=== PATIENT | female | born 1965 | race Caucasian/White ===

== ENCOUNTER 2017-10-14 21:06 | Emergency (ER) | payer BC, MEDICAID ==
[~2017-10-14] VITALS: Ht 167.6 cm; Wt 105.2 kg
[~2017-10-14 21:06] MED LIST: BENADRYL 50MG C50 MG PO; COZAAR100 MG PO; ELIMITE 5%60 GM/TUB1 TP; HYDROCORTISONE30 G1 TP; METOPROLOL 25 M25 MG PO; PREDNISONE 5MG.5 MG PO
[2017-10-14] MEDS ORDERED: ASMANEX TW0.22 MG/A1 IH (21:27)
--- NOTE | 2017-10-14 21:30 | Emergency Room Report ---
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 Y Clinical Suspician of Infection? N Mental Status: 1 - Regular (Normal Baseline) Sepsis Risk:Low Sepsis Risk Have you (or family members/close friends) recently traveled outside the [place]? N If Yes, where/when: Have you had exposure to infectious disease within the past month? N TB? Other? 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 No Angina: No [place]: No Hypertension? Yes Hyperlipidemia? No CHF? No DVT? No PE? No COPD? No Asthma? Yes Anemia? No GERD? No Gastric ulcers? Yes GI Bleed? No Hernia? No Thyroid Problems? No Hypothyroidism? No CVA? No Seizures? No Diabetes? No Renal Insuffiency? No End Stage Renal Disease? No UTI? No Stones? No BPH? No GB Disease: No Nephritic Syndrome? No Asplenia? No Hepatitis? No Sickle Cell Disease? No Arthritis? No Migraines? No Cataracts? No Glaucoma? No MRSA? No HIV? No TB? No Anxiety? No Depression? No Cancer? No More? 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 Respiratory see HPI, cough, denies shortness of breath, denies wheezing Cardiovascular denies chest pain, denies syncope Gastrointestinal denies abdominal pain, denies diarrhea, denies vomiting Genitourinary denies: dysuria, frequency, hesitancy, hematuria. Musculoskeletal denies back pain, denies joint pain, denies joint swelling, denies neck pain Skin denies rash Psychiatric/Neurological denies headache, denies seizure Physical Exam Vital Signs Vital Signs Date Time Temp Pulse Resp B/P Pulse O2 O2 Flow FiO2 Ox Delivery Rate 10/14 2111 98.5 112 18 148/86 96 - WBC >12,000 or <4,000 or 10% bands? 2 or more SIRS Criteria Met? B/P:148/86 MAP:106 Creatinine >2.0? UA output<0.5ml/kg/hr for 2 hrs? Platelet count >100,000? Lactate >2.0mmol/1? INR >1.2 or PTT > than 60 sec? Evidence of Organ Dysfunction? Provider documented clinical suspician of infection? N Sepsis Criteria Count: 1 Sepsis Risk: Low Sepsis Risk General Appearance no apparent distress Eye Exam - bilateral eye PERRL, bilateral eye EOMI Ear, Nose, Throat normal ENT inspection, normal pharynx Neck supple Respiratory Status No: respiratory distress. Lung Sounds bilateral: lungs clear. 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 No Results/Orders Laboratory Tests 10/14/172119: Influenza Type A Ag NOT DETECTED, Influenza Type B Ag NOT DETECTED Orders Procedure Date/time Status INFLUENZA A&B ANTIGENS 10/14 2124 Complete Departure Departure Time of Disposition 2155 Disposition DC Home or Self Care(routine) Clinical Impression Primary Impression: Bronchitis Condition STABLE Referrals JD FRANCIS (Family) Patient Instructions DI for Cough -- Adult Additional Instructions use meds and see pcp for follow up Discharge Counseling Counseled pt/family regarding diagnosis, test results, medications/RX, follow up needs Prescriptions Current Visit Scripts BENZONATATE (Benzonatate) 100 MG PO TID #15 CAP Azithromycin (Zithromycin (Z-CHRISSIE) 250MG Tab) 250 MG PO DAILY #6 TAB TAKE TWO (2) TABLETS ON DAY 1, THEN ONE (1) TABLET DAY #2 THRU #5 ED Critical Care Critical Care No at 2200
--- NOTE | 2017-10-14 21:30 | Emergency Room Report ---
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 Y Clinical Suspician of Infection? N Mental Status: 1 - Regular (Normal Baseline) Sepsis Risk:Low Sepsis Risk Have you (or family members/close friends) recently traveled outside the [place]? N If Yes, where/when: Have you had exposure to infectious disease within the past month? N TB? Other? Specify: Source patient, RN notes reviewed, family, old records Exam Limitations no limitations Comment over the last 3 days has brand mgr cough but has fever and achey Cardiac Chest Pain Chest pain indicative of cardiac No Timing/Duration this evening Severity moderate ALLERGIES Coded Allergies: Latex, Natural Rubber (10/14/17) soap (07/08/16) Uncoded Allergies: DETERGENT (07/08/16) Home Medications Reported Medications Losartan Potassium (Cozaar) 100 MG PO DAILY Metoprolol Tartrate (Metoprolol 25MG) 12.5 MG PO BID Mometasone Furoate (Asmanex) 1 PUFF IH BID History Medical History General CAD? No Angina: No [place]: No Hypertension? Yes Hyperlipidemia? No CHF? No DVT? No PE? No COPD? No Asthma? Yes Anemia? No GERD? No Gastric ulcers? Yes GI Bleed? No Hernia? No Thyroid Problems? No Hypothyroidism? No CVA? No Seizures? No Diabetes? No Renal Insuffiency? No End Stage Renal Disease? No UTI? No Stones? No BPH? No GB Disease: No Nephritic Syndrome? No Asplenia? No Hepatitis? No Sickle Cell Disease? No Arthritis? No Migraines? No Cataracts? No Glaucoma? No MRSA? No HIV? No TB? No Anxiety? No Depression? No Cancer? No More? 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 Respiratory see HPI, cough, denies shortness of breath, denies wheezing Cardiovascular denies chest pain, denies syncope Gastrointestinal denies abdominal pain, denies diarrhea, denies vomiting Genitourinary denies: dysuria, frequency, hesitancy, hematuria. Musculoskeletal denies back pain, denies joint pain, denies joint swelling, denies neck pain Skin denies rash Psychiatric/Neurological denies headache, denies seizure Physical Exam Vital Signs Vital Signs Date Time Temp Pulse Resp B/P Pulse O2 O2 Flow FiO2 Ox Delivery Rate 10/14 2111 98.5 112 18 148/86 96 - WBC >12,000 or <4,000 or 10% bands? 2 or more SIRS Criteria Met? B/P:148/86 MAP:106 Creatinine >2.0? UA output<0.5ml/kg/hr for 2 hrs? Platelet count >100,000? Lactate >2.0mmol/1? INR >1.2 or PTT > than 60 sec? Evidence of Organ Dysfunction? Provider documented clinical suspician of infection? N Sepsis Criteria Count: 1 Sepsis Risk: Low Sepsis Risk General Appearance no apparent distress Eye Exam - bilateral eye PERRL, bilateral eye EOMI Ear, Nose, Throat normal ENT inspection, normal pharynx Neck supple Respiratory Status No: respiratory distress. Lung Sounds bilateral: lungs clear. 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 No Results/Orders Laboratory Tests 10/14/172119: Influenza Type A Ag NOT DETECTED, Influenza Type B Ag NOT DETECTED Orders Procedure Date/time Status INFLUENZA A&B ANTIGENS 10/14 2124 Complete Departure Departure Time of Disposition 2155 Disposition DC Home or Self Care(routine) Clinical Impression Primary Impression: Bronchitis Condition STABLE Referrals JD FRANCIS (Family) Patient Instructions DI for Cough -- Adult Additional Instructions use meds and see pcp for follow up Discharge Counseling Counseled pt/family regarding diagnosis, test results, medications/RX, follow up needs Prescriptions Current Visit Scripts BENZONATATE (Benzonatate) 100 MG PO TID #15 CAP Azithromycin (Zithromycin (Z-CHRISSIE) 250MG Tab) 250 MG PO DAILY #6 TAB TAKE TWO (2) TABLETS ON DAY 1, THEN ONE (1) TABLET DAY #2 THRU #5 ED Critical Care Critical Care No at 2200
--- OUTSIDE RECORDS SUMMARY | 2017-10-14 21:32 | External Medical Summary Rpt | CCD ---
Author Author [employer] Organization [employer] Address Unknown Phone Unavailable Purpose Continuity of Care Document - through 2016
--- OUTSIDE RECORDS SUMMARY | 2017-10-14 21:32 | External Medical Summary Rpt | CCD ---
Author Author , KIMBER QUIROGA Address Unknown Phone [email or web address] Purpose Continuity of Care Document - 06-11-2017 through 2016 Problems Code Diagnosis DOS Provider Status Z12.31 ENCOUNTER 06-17-2017 FOR SCREENING MAMMOGRAM FOR MALIGNANT NEOPLASM OF BREAST I10 ESSENTIAL 06-11-2017 (PRIMARY) HYPERTENSIO N G47.33 OBSTRUCTIVE 06-11-2017 SLEEP APNEA (ADULT) (PEDIATRIC)
--- OUTSIDE RECORDS SUMMARY | 2017-10-14 21:32 | External Medical Summary Rpt | CCD ---
Author Author , KIMBER QUIROGA Address Unknown Phone [email or web address] Purpose Continuity of Care Document - 06-11-2017 through 2016 Problems Code Diagnosis DOS Provider Status Z12.31 ENCOUNTER 06-17-2017 FOR SCREENING MAMMOGRAM FOR MALIGNANT NEOPLASM OF BREAST I10 ESSENTIAL 06-11-2017 (PRIMARY) HYPERTENSIO N G47.33 OBSTRUCTIVE 06-11-2017 SLEEP APNEA (ADULT) (PEDIATRIC)
--- OUTSIDE RECORDS SUMMARY | 2017-10-14 21:33 | External Medical Summary Rpt | CCD ---
Demographics Preferred Language Tajik Marital Status Unknown Holiness Affiliation Unknown Race Unknown Ethnic Group Unknown Author Author , KIMBER QUIROGA Address Unknown Phone Immunization Unable to retrieve immunization data due to connection failure with Immunization Registry. Please try again later.
--- OUTSIDE RECORDS SUMMARY | 2017-10-14 21:33 | External Medical Summary Rpt | CCD ---
Demographics Preferred Language Uzbek Marital Status Unknown Jewish Affiliation Unknown Race Unknown Ethnic Group Unknown Author Author , KIMBER QUIROGA Address Unknown Phone Immunization Unable to retrieve immunization data due to connection failure with Immunization Registry. Please try again later.
[2017-10-14] MEDS ORDERED: TESSALON PERLE100 MG PO (21:59)
[2017-10-14] MEDS ORDERED: ZITHROMAX Z PA250 MG PO (21:59)
[2017-10-14 22:09] VITALS: BP 148/91
== END 2017-10-14 22:09 | disposition home or self-care (01) ==
LOC: ER 21:06
DX: J20.9 Acute bronchitis, unspecified (principal); I10 Essential (primary) hypertension; J45.909 Unspecified asthma, uncomplicated